=== PATIENT | male | born 1985 | race Caucasian/White ===

== ENCOUNTER 2020-05-03 19:59 | Emergency (ER) | payer OTHER, SELFPAY ==
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
[2020-05-03 20:02] VITALS: BP 147/94; PULSE 88; RESP 18; TEMP 36.5; O2SAT 100
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
[2020-05-03] MEDS: ACETAMINOPHEN 500 MG TABLET 1000 MG PO (20:52)
== END 2020-05-03 21:29 | disposition home or self-care (01) ==
PROVIDERS: Emergency Provider Emergency Medicine; PCP Family Medicine
DX: G44.209 Tension-type headache, unspecified, not intractable (principal); V43.52XA Car driver injured in collision with other type car in traffic accident, initial encounter
CPT/HCPCS: 70450; 99284; A9270